=== PATIENT | female | born 1975 | race Caucasian/White ===

== ENCOUNTER 2016-12-13 12:26 | Outpatient (CLI) | payer OTHER ==
--- NOTE | 2016-12-13 13:18 | DIAGNOSTIC IMAGING REPORT ---
PROCEDURE: XR KNEE 3 VIEWS - RIGHT INDICATION: KNEE PAIN TECHNIQUE: Three views. COMPARISON: None. FINDINGS: Osseous structures and joint spaces are normal. IMPRESSION: 1. Normal right knee.
== END 2016-12-13 23:00 ==
LOC: XR SRH 12:26
DX: M25.561 Pain in right knee (principal)